=== PATIENT | male | born 1955 | race Caucasian/White ===

== ENCOUNTER → 2016-03-01 | Outpatient (CLI) | payer OTHER ==
--- NOTE | 2016-03-01 14:29 | DI ---
XR HAND MIN 3VW,03/01/2016 1:20 PM: Clinical History: Right hand pain. Previous Exam: None at this facility. Findings: 3 views of the right hand are obtained, and demonstrate a comminuted intra-articular fracture involvi ng the right fifth proximal phalanx. There is some prominence of the surrounding soft tissues. Impression: 1. Nondisplaced slightly comminuted intra-articular fracture of the right fifth proximal phalanx.
== END ==
LOC: RAD 13:26
PROVIDERS: ATTEND Physician Assistant Medical
DX: M79.641 Pain in right hand (principal); S62.646A Nondisplaced fracture of proximal phalanx of right little finger, initial encounter for closed fracture; V49.49XA Driver injured in collision with other motor vehicles in traffic accident, initial encounter; Y92.410 Unspecified street and highway as the place of occurrence of the external cause; Y99.0 Civilian activity done for income or pay
CPT/HCPCS: 73130

== ENCOUNTER → 2016-03-03 | Outpatient (CLI) | payer OTHER ==
--- NOTE | 2016-03-10 09:42 | DI ---
History trauma, pain. Evaluate for fracture. Two-view left forearm study. Prior examination: None. Findings: Growth plates appear normal. No slippage identified. Long bones of the left forearm are intact. No fracture identified. Wrist and elbow articulations are unremarkable to the extent depicted. Impression: Unremarkable left forearm study
== END ==
LOC: ORTHO 11:16
PROVIDERS: ATTEND Orthopaedic Surgery
DX: M79.644 Pain in right finger(s) (principal); S62.646A Nondisplaced fracture of proximal phalanx of right little finger, initial encounter for closed fracture
CPT/HCPCS: 73140

== ENCOUNTER → 2016-03-10 | Outpatient (CLI) | payer OTHER ==
--- NOTE | 2016-03-10 10:23 | DI ---
History: Trauma right fifth finger. 4 view. Prior: None. Findings: Nondisplaced complex fracture of the right fifth proximal phalanx. No disruption of bone ti ssue from the normal contour but several fracture planes observed. Largest is along the thenar/latera l aspect of this digit. The fracture extends in close proximity to the MCP articulation with there is no separation at the articular surface. Impression: Mildly complex but nondisplaced fracture of the right fifth proximal phalanx. No direct i nvolvement of the MCP articulation is observed
== END ==
LOC: ORTHO 09:46
PROVIDERS: ATTEND Orthopaedic Surgery
DX: S62.616D Displaced fracture of proximal phalanx of right little finger, subsequent encounter for fracture with routine healing (principal)
CPT/HCPCS: 73140

== ENCOUNTER → 2016-03-23 | Outpatient (CLI) | payer OTHER, BC ==
--- NOTE | 2016-03-23 12:52 | DI ---
RIGHT LITTLE FINGER, 03/23/2016 12:07 PM: Clinical History: Fracture of the proximal phalanx of the right little finger. Previous Exam: 03/10/2016. 3 views are submitted. There is a stellate, "Y" shaped fracture of the proximal half of the proximal phalanx of the little finger. This is nondisplaced and does not involve the joint. The remainder of t he exam is normal. Reading: Nondisplaced fracture through the proximal half of the proximal phalanx of the little finger.
== END ==
LOC: ORTHO 12:15
PROVIDERS: ATTEND Orthopaedic Surgery
DX: S62.646D Nondisplaced fracture of proximal phalanx of right little finger, subsequent encounter for fracture with routine healing (principal)
CPT/HCPCS: 73140

== ENCOUNTER → 2016-03-31 | Outpatient (CLI) | payer OTHER ==
--- NOTE | 2016-04-03 08:45 | DI ---
XR FINGERS MIN 2VW,03/31/2016 11:26 AM: Clinical History: Fracture of the right fifth proximal phalanx. Previous Exam: None at this facility. Findings: 3 views of the right fifth digit are obtained, and demonstrate some softening of the margins of a com minuted fracture of the right fifth proximal phalanx. Mild surrounding soft tissues are unremarkable. Impression: Healing fracture right fifth proximal phalanx.
== END ==
LOC: ORTHO 11:33
PROVIDERS: ATTEND Orthopaedic Surgery
DX: S62.616D Displaced fracture of proximal phalanx of right little finger, subsequent encounter for fracture with routine healing (principal); M79.89 Other specified soft tissue disorders
CPT/HCPCS: 73140

== ENCOUNTER → 2016-04-10 | Outpatient (CLI) | payer OTHER ==
--- NOTE | 2016-04-10 10:58 | DI ---
XR HAND MIN 3VW,04/10/2016 10:38 AM: Clinical History: Right hand pain. Previous Exam: None at this facility. Findings: 3 views of the right hand are obtained, and demonstrate a minimally displaced comminuted fracture of the right fifth proximal phalanx. Overlying soft tissues are unremarkable. Impression: Healing fracture of the right fifth proximal phalanx.
== END ==
LOC: ORTHO 10:45
PROVIDERS: ATTEND Orthopaedic Surgery
DX: S62.616D Displaced fracture of proximal phalanx of right little finger, subsequent encounter for fracture with routine healing (principal)
CPT/HCPCS: 73130

== ENCOUNTER → 2016-04-24 | Outpatient (CLI) | payer OTHER ==
--- NOTE | 2016-04-24 21:50 | DI ---
RIGHT LITTLE FINGER, 04/24/2016 10:02 AM: Clinical History: Fracture of the proximal phalanx of the right little finger. Previous Exam: 04/10/2016. 3 views are submitted. The comminuted nondisplaced fracture through the proximal half of the proximal phalanx of the little finger shows developing periosteal new bone formation. The fracture lucencies are still visible but less apparent indicating healing. Degenerative joint space narrowing is present in the MCP, PIP, and DIP joints indicating osteoarthritis. Readin. There has been progressive healing of the comminuted fracture through the proximal half of the pr oximal phalanx of the little finger. Alignment and position are anatomic. 2. Degenerative arthritic changes are present in the MCP, PIP, and DIP joints.
== END ==
LOC: ORTHO 10:08
PROVIDERS: ATTEND Orthopaedic Surgery
DX: S62.646D Nondisplaced fracture of proximal phalanx of right little finger, subsequent encounter for fracture with routine healing (principal)
CPT/HCPCS: 73140

== ENCOUNTER → 2016-05-15 | Outpatient (CLI) | payer BC, OTHER ==
--- NOTE | 2016-05-15 12:08 | DI ---
XR FINGERS MIN 2VW,05/15/2016 10:04 AM: Clinical History: Fracture of the proximal right fifth phalanx. Previous Exam: April 24, 2016. Findings: 3 views of the right fifth proximal phalanx are obtained, and demonstrate a nondisplaced slightly com minuted fracture of the right fifth proximal phalanx. Overlying soft tissue swelling is seen. Impression: Healing right fifth proximal phalangeal fracture.
== END ==
LOC: ORTHO 10:05
PROVIDERS: ATTEND Orthopaedic Surgery
DX: S62.646D Nondisplaced fracture of proximal phalanx of right little finger, subsequent encounter for fracture with routine healing (principal)
CPT/HCPCS: 73140